=== PATIENT | male | born 1990 | race Caucasian/White ===

== ENCOUNTER 2019-09-19 07:48 | Emergency (ER) | payer OTHER ==
[~2019-09-19] VITALS: Ht 172.7 cm; Wt 72.6 kg
[~2019-09-19 07:48] MED LIST: CARISOPRODOL 3350 MG PO; GABAPENTIN 100100 MG PO; IBUPROFEN 800800 M1 PO; NEPHROCAPS SOFT1 CAP PO; PEPCID20 MG PO; PHENERGAN 25 MG25 M1 PO; POTASSIUM20 PO; PRENATAL PO; ULTRAM 50MG TAB50 MG PO
[2019-09-19] MEDS ORDERED: PROBIOTIC1 EAC7 PO (08:07)
[2019-09-19] MEDS ORDERED: VITAMIN C500 M1 PO (08:08)
[2019-09-19 08:52] LABS: HEMATOCRIT 41.1 % (42.0-52.0); HEMOGLOBIN 14.5 gm/dL (14.0-18.0); MCHC 35.2 g/dL (28.0-37.0); MCV 91.1 fL (80.0-100.0); MPV 8.8 fl. (7.2-11.1); NUCLEATED RBCS 0 /100WBC; PLATELET COUNT* 216 thou/uL (150-400); RBC 4.52 mil/uL (4.50-6.00); RDW-CV 13.6 % (10.5-14.5); WBC 11.7 thou/uL (4.0-11.0)
[2019-09-19 08:57] LABS: CALCIUM 8.6 mg/dL (8.5-10.1); CREATININE 0.9 mg/dL (0.6-1.3); POTASSIUM 3.5 mmol/L (3.5-5.1)
[2019-09-19 09:02] LABS: ALBUMIN 4.3 g/dL (3.4-5.0); TOTAL BILIRUBIN 1.3 mg/dL (<0.1-1.0); TOTAL PROTEIN 8.2 g/dL (6.4-8.2)
[2019-09-19 09:14] LABS: URINE BLOOD TRACE (Negative); URINE CLARITY CLEAR; URINE COLOR YELLOW; URINE GLUCOSE-RANDOM NEGATIVE (Negative); URINE LEUKOCYTES-REFLEX NEGATIVE (Negative); URINE NITRITE-REFLEX NEGATIVE (Negative); URINE PROTEIN 2+ (Negative); URINE SPECIFIC GRAVITY >= 1.030 (1.005-1.030); URINE UROBILINOGEN 0.2 E.U./dl (0.2-1.0)
[2019-09-19 09:15] LABS: URINE BILIRUBIN 1+ (Negative); URINE KETONES 3+ (Negative)
[2019-09-19 09:16] LABS: ACETEST (KETONE CONFIRMATORY) Large (Negative)
[2019-09-19 09:17] LABS: ICTOTEST (BILI CONFIRMATORY) Negative (Negative)
[2019-09-19 09:19] LABS: BACTERIA-REFLEX 1-9 Few /HPF (None Seen); CASTS None Seen /LPF (None Seen); CRYSTALS None Seen /LPF (None Seen); SQUAMOUS 0-3 Few /LPF (0-3); URINE RBC 0-2 Rare /HPF (0-2); URINE WBC-REFLEX 0-5 Rare /HPF (0-5)
--- NOTE | 2019-09-19 09:31 | EKG ---
[place] [address] ELECTROCARDIOGRAM REPORT Name: PEGGY BUSTAMANTE Room: [facility]#: [id number] Admission: 09/19/19 Attend Phys: Discharge: Date of : 89 Date of Service: 09/19/1908 Report #: [id number] THIS REPORT FOR: //name// [facility] ED Test Date: 2019-09-19 Test Time: 08:08:15 Pat Name: PEGGY BUSTAMANTE Department: Room: Gender: Director Industrial: [place] : 1990 Requested By: Balwinder Hart Order Number: [id number] MD: Ron Ridley Measurements Intervals [place] Rate: 92 P: 76 [place]: 142 QRS: 78 QRSD: 97 T: 57 QT: 372 QTc: 461 Interpretive Statements Sinus rhythm ST elev, probable normal early repol pattern Baseline wander in lead(s) II,aVR,aVF Compared to ECG 02/26/2017 14:33:31 ST (T wave) deviation now present Electronically Signed On 09-19-2019 9:29:59 CDT by Ron Ridley [email or web address] <ELECTRONICALLY SIGNED> By: Ron Ridley MD, [facility] 09/19/19 0929 Ron Ridley MD, [facility] /EPI
[2019-09-19 09:44] LABS: ABSOLUTE LYMPHOCYTES 1.1 thou/uL (0.8-5.3); ABSOLUTE NEUTROPHILS 10.6 thou/uL (1.6-8.1); PLATELET ESTIMATE ADEQUATE
[2019-09-19] MEDS ORDERED: ATIVAN0.5 M1 PO (11:01)
[2019-09-19] MEDS ORDERED: HYDROCODON-ACE1 EAC7 PO (11:01)
[2019-09-19 11:27] VITALS: BP 125/80
== END 2019-09-19 11:28 | disposition home or self-care (01) ==
LOC: M.ERS 07:48
PROVIDERS: Emergency Medicine
DX: K85.90 Acute pancreatitis without necrosis or infection, unspecified (principal); R11.2 Nausea with vomiting, unspecified; F17.210 Nicotine dependence, cigarettes, uncomplicated; Z88.0 Allergy status to penicillin

== ENCOUNTER 2020-12-31 08:45 | Emergency (ER) | payer BC ==
[~2020-12-31] VITALS: Ht 175.3 cm; Wt 74.8 kg
[~2020-12-31 08:45] MED LIST changes: +ATIVAN0.5 M1 PO; +HYDROCODON-ACE1 EAC7 PO; +PROBIOTIC1 EAC7 PO; +VITAMIN C500 M1 PO
[2020-12-31 08:50] VITALS: BP 134/96
[2020-12-31] MEDS ORDERED: TRAMADOL200 MG PO (08:55)
== END 2020-12-31 10:01 | disposition left against medical advice (07) ==
LOC: M.ERS 08:45
DX: Z53.21 Procedure and treatment not carried out due to patient leaving prior to being seen by health care provider (principal)